=== PATIENT | female | born 2000 | race Caucasian/White ===

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

== ENCOUNTER 2022-03-25 20:55 | Emergency (ER) | payer MEDICAID, OTHER ==
[~2022-03-25] VITALS: Ht 162.6 cm; Wt 77.7 kg
[~2022-03-25 20:55] MED LIST changes: +ETON68IM3 SD
[2022-03-25 21:27] VITALS: BP 146/84
[2022-03-25] MEDS ORDERED: DOXYCYCLINE HYCLATE 100 MG TABLET PO ONE (23:00)
[2022-03-25] MEDS ORDERED: BACITRACIN 0.9 GM PACKET OINTMENT TP ONE (23:00)
[2022-03-25] MEDS ORDERED: IBUPROFEN 600 MG TABLET PO ONE (23:00)
[2022-03-25] MEDS ORDERED: DOXY-354 PO (23:19)
== END 2022-03-25 23:34 | disposition home or self-care (01) ==
LOC: EMS 20:57
DX: L03.116 Cellulitis of left lower limb (principal)
CPT/HCPCS: 99284; Z7502; Z7610

== ENCOUNTER 2024-05-18 14:01 | Emergency (ER) | payer MEDICAID ==
[~2024-05-18] VITALS: Ht 162.6 cm; Wt 69.1 kg
[~2024-05-18 14:01] MED LIST changes: +DOXY-354 PO; -DSS100 PO; -ETON68IM3 SD; -IBUP-2070 PO; -PNV11TAB PO
[2024-05-18] MEDS: SODIUM CHLORIDE 0.9% 1,000 ML IV ONE (17:33)
[2024-05-18] MEDS: KETOROLAC TROMETHAMINE 30 MG/ML VIAL IVP ONE (17:34)
[2024-05-18 17:44] LABS: COVID AG,FIA SOURCE NASAL SWAB
[2024-05-18 17:46] LABS: BASOPHILS % (AUTO) 0.1 % (0.0-2.0); EOSINOPHILS % (AUTO) 0 % (1.0-6.0); HEMATOCRIT 42.3 % (36-46); LYMPHOCYTES # (AUTO) 0.8 K/uL (1.0-4.8); LYMPHOCYTES % (AUTO) 6.4 % (22.0-44.0); MEAN CORPUSCULAR HEMOGLOBIN 28.7 pg (26.0-34.0); MEAN CORPUSCULAR VOLUME 87 fL (80-100); MONOCYTES # (AUTO) 0.7 K/uL (0.1-1.0); MONOCYTES % (AUTO) 5.4 % (2.0-9.0); NEUTROPHILS # (AUTO) 10.8 K/uL (1.8-7.7); PLATELET COUNT (AUTO) 205 K/uL (150-450); RED BLOOD CELL COUNT(AUTO) 4.88 MIL/uL (4.00-5.20); RED CELL DISTRIBUTION WIDTH 12.7 % (11.5-14.5); WHITE BLOOD COUNT (AUTO) 12.2 K/uL (4.5-11.0)
[2024-05-18 17:52] LABS: NEUTROPHILS % (AUTO) 88.1 % (40.0-70.0)
[2024-05-18 18:00] LABS: ANION GAP 10 mmol/L (8-16); CALCIUM, TOTAL 9.2 mg/dL (8.8-10.5); CARBON DIOXIDE 25 mmol/L (22-29); CHLORIDE 99 mmol/L (98-107); CREATININE 1.06 mg/dL (0.60-1.30); GLOMERULAR FILTR. RATE CALC > 60 mL/min (>60); GLUCOSE,RANDOM 103 mg/dL (70-110); POTASSIUM 3.5 mmol/L (3.5-5.1); SODIUM SERUM 134 mmol/L (136-145); UREA NITROGEN, BLOOD 11 mg/dL (7-18)
[2024-05-18 18:06] LABS: INFLUENZA TYPE A NEGATIVE FOR TYPE A (NEGATIVE); INFLUENZA TYPE B NEGATIVE FOR TYPE B (NEGATIVE); SARS-COV2 (COVID) ANTIGEN,FIA Negative (Negative)
[2024-05-18 18:06] LABS: ALANINE AMINOTRANSFERASE 26 U/L (12-78); ALKALINE PHOSPHATASE 82 U/L (46-116); ASPARTATE AMINOTRANSFERASE 21 U/L (15-37); BILIRUBIN,TOTAL 0.9 mg/dL (0.1-1.0); LIPASE 29 U/L (16-77); TOTAL PROTEIN, SERUM 8.4 g/dL (6.4-8.2)
[2024-05-18] MEDS ORDERED: SODIUM CHLORIDE 0.9% 100 ML ONE (18:48)
[2024-05-18] MEDS ORDERED: IOHEXOL 350 MG/ML 100 ML VIAL ONE (18:48)
[2024-05-18] MEDS ORDERED: 0.9% SODIUM CHLORIDE 10 ML SYRINGE IVP ONE (18:48)
[2024-05-18 20:54] LABS: APPEARANCE,URINE CLEAR (CLEAR); BILIRUBIN,URINE NEGATIVE (NEGATIVE); COLOR,URINE LIGHT YELLOW (YELLOW); GLUCOSE, URINE (UA) NEGATIVE (NEGATIVE); KETONES,URINE TRACE mg/dL (NEGATIVE); LEUKOCYTE ESTERASE ,URINE NEGATIVE (NEGATIVE); NITRATE,URINE NEGATIVE (NEGATIVE); OCCULT BLOOD,URINE NEGATIVE (NEGATIVE); PH,URINE 6.5 (5.0-8.0); PROTEIN,URINE TRACE mg/dL (NEGATIVE); UROBILINOGEN,URINE <=1.0 mg/dL (<=1.0)
[2024-05-18 20:56] LABS: SPECIFIC GRAVITIY, URINE > 1.050 (1.003-1.030)
[2024-05-18 21:39] VITALS: BP 114/69; PULSE 86; RESP 16; TEMP 101.6
[2024-05-18] MEDS: ACETAMINOPHEN 325 MG TABLET PO ONE (22:02)
[2024-05-18] MEDS ORDERED: IBUP-1492 PO (22:11)
== END 2024-05-18 22:19 | disposition home or self-care (01) ==
LOC: EMS 14:01
DX: R10.30 Lower abdominal pain, unspecified (principal); F17.210 Nicotine dependence, cigarettes, uncomplicated; F12.90 Cannabis use, unspecified, uncomplicated; Z20.822 Contact with and (suspected) exposure to COVID-19
CPT/HCPCS: 80053; 81003; 83690; 84702; 85025; 87804; 36415; 74177; 99285; 96361; 96374; 87426; Q9967; J1885; J7030; J7050; X7700

== ENCOUNTER 2024-05-20 10:22 | Emergency (ER) | payer MEDICAID ==
[~2024-05-20] VITALS: Ht 162.6 cm; Wt 69.1 kg
[~2024-05-20 10:22] MED LIST changes: -DOXY-354 PO; +IBUP-1492 PO
[2024-05-20 12:12] VITALS: TEMP 99
[2024-05-20 12:41] LABS: BASOPHILS % (AUTO) 0.2 % (0.0-2.0); EOSINOPHILS % (AUTO) 0.3 % (1.0-6.0); HEMATOCRIT 38.5 % (36-46); HEMOGLOBIN 12.9 g/dL (12.0-16.0); LYMPHOCYTES # (AUTO) 1.2 K/uL (1.0-4.8); LYMPHOCYTES % (AUTO) 19.3 % (22.0-44.0); MEAN CORPUSCULAR HGB CONC 33.5 G/dL (31.0-37.0); MEAN CORPUSCULAR VOLUME 87 fL (80-100); MONOCYTES # (AUTO) 0.6 K/uL (0.1-1.0); MONOCYTES % (AUTO) 10.2 % (2.0-9.0); NEUTROPHILS # (AUTO) 4.3 K/uL (1.8-7.7); PLATELET COUNT (AUTO) 182 K/uL (150-450); RED BLOOD CELL COUNT(AUTO) 4.44 MIL/uL (4.00-5.20); WHITE BLOOD COUNT (AUTO) 6.1 K/uL (4.5-11.0)
[2024-05-20 12:48] LABS: ANION GAP 11 mmol/L (8-16); CALCIUM, TOTAL 8.8 mg/dL (8.8-10.5); CARBON DIOXIDE 27 mmol/L (22-29); CHLORIDE 101 mmol/L (98-107); CREATININE 0.97 mg/dL (0.60-1.30); GLOMERULAR FILTR. RATE CALC > 60 mL/min (>60); GLUCOSE,RANDOM 106 mg/dL (70-110); LIPASE 34 U/L (16-77); POTASSIUM 3.6 mmol/L (3.5-5.1); SODIUM SERUM 139 mmol/L (136-145); UREA NITROGEN, BLOOD 8 mg/dL (7-18)
[2024-05-20] MEDS ORDERED: DIPH-1130 PO (13:49)
[2024-05-20] MEDS ORDERED: ACET-66 PO (13:49)
[2024-05-20] MEDS ORDERED: ONDA-104 PO (13:49)
[2024-05-20 14:00] VITALS: BP 121/75; PULSE 64; RESP 16
[2024-05-20] MEDS: KETOROLAC TROMETHAMINE 30 MG/ML VIAL IVP ONE (14:01)
[2024-05-20] MEDS: DIPHENOXYLATE/ATROP 2.5-0.025 MG TABLET PO ONE (14:01)
[2024-05-20] MEDS: SODIUM CHLORIDE 0.9% 2,000 ML IV ONE (14:02)
[2024-05-20] MEDS: ONDANSETRON HCL 4 MG/2 ML VIAL IVP ONE (14:02)
== END 2024-05-20 16:42 | disposition home or self-care (01) ==
LOC: EMS 10:22
DX: K52.9 Noninfective gastroenteritis and colitis, unspecified (principal); N83.202 Unspecified ovarian cyst, left side; F17.210 Nicotine dependence, cigarettes, uncomplicated; F12.90 Cannabis use, unspecified, uncomplicated
CPT/HCPCS: 99285; 96374; 76856; 71045; 96361; 96375; 80048; 83690; 85025; 93005; J1885; J2405; J7030; 36415-L1; 36415-TC

== ENCOUNTER 2024-06-08 22:10 | Emergency (ER) | payer MEDICAID ==
[~2024-06-08] VITALS: Ht 162.6 cm; Wt 70.0 kg
[~2024-06-08 22:10] MED LIST changes: +ACET-66 PO; +DIPH-1130 PO; +ONDA-104 PO
[2024-06-08 22:14] VITALS: TEMP 98.2
[2024-06-09] MEDS: SULFACETAMIDE SODIUM 10% 15 ML OPHTHALMIC SOLUTION OU ONE (00:43)
[2024-06-09] MEDS: ERYTHROMYCIN 0.5% 3.5 GM TUBE OPHTHALMIC OINTMENT OU ONE (00:43)
[2024-06-09 01:07] VITALS: BP 101/60; PULSE 78; RESP 18
== END 2024-06-09 01:09 | disposition home or self-care (01) ==
LOC: EMS 22:10
DX: H10.89 Other conjunctivitis (principal); F17.210 Nicotine dependence, cigarettes, uncomplicated; F12.90 Cannabis use, unspecified, uncomplicated
CPT/HCPCS: 99283

== ENCOUNTER 2024-11-01 18:53 | Emergency (ER) | payer MEDICAID ==
[~2024-11-01] VITALS: Ht 165.1 cm; Wt 73.6 kg
[2024-11-01 19:02] VITALS: TEMP 98.3
[2024-11-01] MEDS: ACETAMINOPHEN 500 MG TABLET PO ONE (21:21)
[2024-11-01] MEDS ORDERED: SULF15DR26 OD (21:45)
[2024-11-01] MEDS ORDERED: IBUP-1554 PO (21:45)
[2024-11-01 21:49] VITALS: BP 121/72; PULSE 78; RESP 15; O2SAT 99
[2024-11-01] MEDS: BACITRACIN/POLYMYXIN B 3.5 GM OPHTHALMIC OINTMENT OD ONE (21:49)
== END 2024-11-01 21:50 | disposition home or self-care (01) ==
LOC: EMS 18:53
DX: S05.01XA Injury of conjunctiva and corneal abrasion without foreign body, right eye, initial encounter (principal); F12.90 Cannabis use, unspecified, uncomplicated; X58.XXXA Exposure to other specified factors, initial encounter; Y93.89 Activity, other specified; Y92.89 Other specified places as the place of occurrence of the external cause; Y99.8 Other external cause status
CPT/HCPCS: 99283